=== PATIENT | male | born 1960 | race Caucasian/White ===

== ENCOUNTER → 2022-03-24 07:42 | Outpatient (CLI) | payer OTHER, SELFPAY ==
--- NOTE | 2022-03-24 07:49 | US_ITS ---
FINAL REPORT TECHNIQUE: Sonographic images of the right upper quadrant were obtained. CLINICAL HISTORY: ELEVATED LIEVER FUNCTION TEST FINDINGS: The liver is fatty infiltrated. There is no focal hepatic lesion or intrahepatic biliary dilatation. The gallbladder is well filled. There are gallstones. There is no pericholecystic fluid collection or gallbladder wall thickening. The common duct measures 2 mm which is within normal limits. The pancreatic tail is partially obscured by bowel gas. Otherwise, it has a normal appearance. The right kidney measures 10.4 cm in [id number] length. There is no hydronephrosis, mass, or stone. There is no right upper quadrant ascites. IMPRESSION: Fatty liver. Cholelithiasis. Reviewed, Interpreted and Dictated by Alicia Lopez MD Transcribed by Pallavi Chappell Authenticated and . [facility]
== END ==
PROVIDERS: PCP Family Medicine; Visit Provider Family Medicine
DX: R79.89 Other specified abnormal findings of blood chemistry (principal)
CPT/HCPCS: 76705

== ENCOUNTER → 2022-08-14 13:00 | Outpatient (CLI) | payer OTHER, SELFPAY ==
--- NOTE | 2022-08-14 13:07 | CT_ITS ---
FINAL REPORT CLINICAL HISTORY: H/O NICOTINE DEPENDENCE current smoker 1ppd x40 years FINDINGS: Low-Dose Chest CT Axial images were obtained from the lung apex to the mid abdomen by computed tomography. Low-dose protocol was utilized. CTDI vol (mGy): 2.90 DLP (mGy-cm): 93.25 There is no axillary adenopathy. There is no hilar or mediastinal adenopathy. The heart is proper size. There is no pericardial or pleural effusion. Lung window images demonstrate mild changes of emphysema with mild pulmonary scarring. There are multiple small nodules including a 3 mm right middle lobe nodule on image 42 and a 5 mm ground-glass nodule in the right lower lobe on image 50. Limited images of the upper abdomen are unremarkable. IMPRESSION: Lung RADS category 2. Recommend 12 month follow-up low-dose chest CT. Reviewed, Interpreted and Dictated by Brian Toledo III, MD Transcribed by Marycarmen Broussard Authenticated and . [facility]
== END ==
PROVIDERS: PCP Family Medicine; Visit Provider Family Medicine
DX: Z87.891 Personal history of nicotine dependence (principal); Z12.2 Encounter for screening for malignant neoplasm of respiratory organs
CPT/HCPCS: 71271